=== PATIENT | male | born 1985 | race African-American/Black ===

== ENCOUNTER 2018-05-15 18:42 | Emergency (ER) | payer OTHER ==
[2018-05-15 18:46] VITALS: BP 119/72; PULSE 97; RESP 16
[2018-05-15] MEDS ORDERED: IBUPROFEN 600 MG TAB PO STA (18:56)
[2018-05-15] MEDS ORDERED: ACETAMINOPHEN TAB 325 MG TAB PO STA (18:56)
--- NOTE | 2018-05-15 18:59 | ED ---
General Adult HPI - General Chief complaint: Fever Stated complaint: Poss Pnuemonia Time Seen by Provider: 05/15/18 18:47 Source: patient, RN notes reviewed, old records reviewed Mode of arrival: ambulatory Limitations: no limitations - History of Present Illness Initial comments: 32-year-old male patient with past medical history of hypertension presents to ED with 1 day of waxing and waning fevers, nonproductive cough, myalgias. Patient does admit to regular tobacco use. Patient denies any other complaints. Patient denies chest pain, shortness of breath, abdominal pain, vomiting or diarrhea. Systemic: Pt denies fatigue, rash. Pt denies weakness, night sweats, weight loss. Neuro: Pt denies headache, visual disturbances, syncope or pre-syncope. HEENT: Pt denies ocular discharge or irritation, otalgia, rhinorrhea, pharyngitis or notable lymphadenopathy. Cardiopulmonary: Pt denies chest pain, SOB, heart palpitations, dyspnea on exertion. Abdominal/GI: Pt denies abdominal pain, n/v/d. : Pt denies dysuria, burning w/ urination, frequency/urgency. Denies new onset urinary or bowel incontinence. MSK: Pt denies loss of strength or function in extremities. Neuro: Pt denies new onset weakness, paresthesias. - Related Data Previous Rx's Medication Instructions Recorded Oseltamivir [Tamiflu] 75 mg PO Q12HR 5 Days cap 05/15/18 Allergies Allergy/AdvReac Type Severity Reaction Status Date / Time No Known Allergies Allergy Verified 05/15/18 19:05 Review of Systems ROS Statement: Those systems with pertinent positive or pertinent negative responses have been documented in the HPI. ROS Other: All systems not noted in ROS Statement are negative. Past Medical History Past Medical History: Hypertension History of Any Multi-Drug Resistant Organisms: None Reported Past Surgical History: Appendectomy Past Psychological History: No Psychological Hx Reported Smoking Status: Current every day smoker Past Alcohol Use History: Occasional Past Drug Use History: None Reported General Exam - General Exam Comments Initial Comments: Constitutional: NAD, AOX3, Pt has pleasant affect. HEENT: NC/AT, trachea midline, neck supple, no lymphadenopathy. Posterior pharynx non erythematous, without exudates. External ears appear normal, without discharge. Mucous membranes moist. Eyes PERRLA, EOM intact. There is no scleral icterus. No pallor noted. Cardiopulmonary: RRR, no murmurs, rubs or gallops, no JVD noted. Lungs CTAB in anterior and posterior hammond. No peripheral edema. Abdominal exam: Abdomen soft and non-distended. Abdomen non-tender to palpation in all 4 quadrants. Bowel sounds active in LLQ. No hepatosplenomegaly. No ecchymosis Neuro: CN II-XII grossly intact. No nuchal rigidity. MSK: No posterior calf tenderness bilaterally, homans sign negative bilaterally. Posterior tibialis and radial pulse +2 bilaterally. Sensation intact in upper and lower extremities. Full active ROM in upper and lower extremities, 5/5 stregnth. Limitations: no limitations Course Vital Signs 05/15/18 05/15/18 18:44 21:09 Temperature 100.7 F H 99.4 F Pulse Rate 97 Respiratory 16 Rate Blood Pressure 119/72 O2 Sat by Pulse 97 Oximetry Medical Decision Making - Medical Decision Making 32-year-old male patient with past medical history of hypertension presents to ED with 1 day of waxing and waning fevers, nonproductive cough, myalgias. Patient does admit to regular tobacco use. Patient denies any other complaints. Patient denies chest pain, shortness of breath, abdominal pain, vomiting or diarrhea. Patient also has stable, mildly febrile. Patient administered antipyretic. Physical exam did not display acute pathology. Laboratory Investigations reveal negative influenza. Chest x-ray displayed no acute process. She decision making, due to patient's history, and presentation patient to be treated empirically for influenza. Patient to discharge, supportive therapy. Patient follow with PCP in 1-2 days. Patient return to ER if new symptoms develop or condition worsens in anyway. Case discussed in depth with Dr. Palomares. - Lab Data Lab Results 05/15/18 Range/Units 19:30 Influenza Type A RNA Not Detected (Not Detectd) Influenza Type B (PCR) Not Detected (Not Detectd) Disposition Clinical Impression: Viral syndrome Disposition: HOME SELF-CARE Condition: Stable Instructions (If sedation given, give patient instructions): Fever in Adults (ED), Viral Syndrome (ED) Additional Instructions: Patient to adhere to previously discussed treatment plan and will take medication(s) as directed. Patient to follow up with PCP in 1-2 days. Patient to return to ED if symptoms do not improve. Follow-up with primary care provider in 1-2 days. Return to ER condition worsens in any way. Use Tylenol and Motrin as needed for fever. Prescriptions: Oseltamivir [Tamiflu] 75 mg PO Q12HR 5 Days cap Is patient prescribed a controlled substance at d/c from ED?: No Referrals: None,Stated [Primary Care Provider] - 1-2 days [facility] - [facility]-2 days
--- NOTE | 2018-05-15 19:35 | XR ---
EXAMINATION: XR chest 2V DATE AND TIME: 05/15/2018 7:21 PM CLINICAL INDICATION: PHH; Pain fever and cough TECHNIQUE: Departmental protocol COMPARISON: 11/19/2009 FINDINGS: The overlying soft tissues are prominent. Lungs are clear. The pleural spaces are negative. The cardiac silhouette is not enlarged. The remainder of the mediastinal silhouette is unremarkable. The skeletal structures and soft tissues are negative for acute findings. IMPRESSION: NO ACUTE PROCESS.
[2018-05-15] MEDS ORDERED: OSELTAMIVIR 75 MG CAP PO STA (20:17)
[2018-05-15] MEDS ORDERED: ACETAMINOPHEN ORAL SUSP 160 MG/5 ML CUP PO ONE (20:17)
[2018-05-15 21:10] VITALS: TEMP 99.4
== END 2018-05-15 21:55 | disposition home or self-care (01) ==
LOC: EC 18:42
DX: B34.9 Viral infection, unspecified (principal); F17.200 Nicotine dependence, unspecified, uncomplicated
CPT/HCPCS: 71046; 87502; 99284

== ENCOUNTER 2019-03-06 22:20 | Emergency (ER) | payer OTHER ==
[2019-03-06] MEDS ORDERED: IBUPROFEN 600 MG TAB PO STA (22:39)
[2019-03-06] MEDS ORDERED: ACETAMINOPHEN TAB 500 MG TAB PO STA (22:39)
--- NOTE | 2019-03-06 23:06 | XR ---
EXAMINATION TYPE: XR chest 2V DATE OF EXAM: 03/06/2019 COMPARISON: 05/15/2018 HISTORY: Cough and fever TECHNIQUE: FINDINGS: Heart and mediastinum are normal. Lungs are clear. Diaphragm is normal. Bony thorax appears normal. IMPRESSION: Normal chest. No adverse change.
[2019-03-07 00:02] VITALS: PULSE 80; RESP 18; TEMP 99
[2019-03-07 00:03] VITALS: BP 141/90
--- NOTE | 2019-03-07 00:15 | ED ---
General Adult HPI - General Chief complaint: Upper Respiratory Infection Stated complaint: Cough Time Seen by Provider: 03/06/19 22:36 Source: patient, RN notes reviewed, old records reviewed Mode of arrival: ambulatory Limitations: no limitations - History of Present Illness Initial comments: 34-year-old male patient no pertinent past history presents to ED for chief complaint of cough, fever. Patient forced this began approximately 4 AM this morning. Patient does report that he had exposure to influenza last week. Denies any nausea vomiting. Denies any localized pain. Reports that when coughing he has some mild discomfort, denies any pain at rest. Denies any difficulty breathing. Denies other complaints. Systemic: Pt denies fatigue, fever/chills, rash. Pt denies weakness, night sweats, weight loss. Neuro: Pt denies headache, visual disturbances, syncope or pre-syncope. HEENT: Pt denies ocular discharge or irritation, otalgia, rhinorrhea, pharyngitis or notable lymphadenopathy. Cardiopulmonary: Pt denies chest pain, SOB, heart palpitations, dyspnea on exertion. Abdominal/GI: Pt denies abdominal pain, n/v/d. : Pt denies dysuria, burning w/ urination, frequency/urgency. Denies new onset urinary or bowel incontinence. MSK: Pt denies myalgia, loss of strength or function in extremities. Neuro: Pt denies new onset weakness, paresthesias. - Related Data Previous Rx's Medication Instructions Recorded Oseltamivir [Tamiflu] 75 mg PO Q12HR 5 Days cap 05/15/18 Allergies Allergy/AdvReac Type Severity Reaction Status Date / Time No Known Allergies Allergy Verified 03/06/19 22:24 Review of Systems ROS Statement: Those systems with pertinent positive or pertinent negative responses have been documented in the HPI. ROS Other: All systems not noted in ROS Statement are negative. Past Medical History Past Medical History: Hypertension History of Any Multi-Drug Resistant Organisms: None Reported Past Surgical History: Appendectomy Past Psychological History: No Psychological Hx Reported Smoking Status: Current every day smoker Past Alcohol Use History: Occasional Past Drug Use History: None Reported General Exam - General Exam Comments Initial Comments: Constitutional: NAD, AOX3, Pt has pleasant affect. HEENT: NC/AT, trachea midline, neck supple, no lymphadenopathy. Posterior pha rynx non erythematous, without exudates. External ears appear normal, without discharge. Mucous membranes moist. Eyes PERRLA, EOM intact. There is no scleral icterus. No pallor noted. Cardiopulmonary: RRR, no murmurs, rubs or gallops, no JVD noted. Lungs CTAB in anterior and posterior hammond. No peripheral edema. Abdominal exam: Abdomen soft and non-distended. Abdomen non-tender to palpation in all 4 quadrants. Bowel sounds active in LLQ. No hepatosplenomegaly. No ecchymosis Neuro: CN II-XII grossly intact. No nuchal rigidity. No raccon eyes, no whelan sign, no hemotympanum. No cervical spinal tenderness. MSK: No posterior calf tenderness bilaterally, homans sign negative bilaterally. Posterior tibialis and radial pulse +2 bilaterally. Sensation intact in upper and lower extremities. Full active ROM in upper and lower extremities, 5/5 stregnth. Limitations: no limitations Course Vital Signs 03/06/19 03/07/19 22:22 00:02 Temperature 101.8 F H 99 F Pulse Rate 90 80 Respiratory 16 18 Rate Blood Pressure 151/92 141/90 O2 Sat by Pulse 99 98 Oximetry Medical Decision Making - Medical Decision Making 34-year-old male patient presents to ED with chief complaint cough, fever. Began this morning approximate 4 AM. Patient vital signs the displayed fever, patient was administered antipyretic. Physical exam did not display acute pathology. Laboratory investigations revealed negative influenza. Chest x-ray also negative. Patient feeling much improved after administration of antipyretic. Likely experiencing viral syndrome. Patient discharged to follow up with primary care provider tomorrow, will return to ER if condition worsens. Case discussed with Dr. Dey. - Lab Data Lab Results 03/06/19 Range/Units 22:51 Influenza Type A RNA Not Detected (Not Detectd) Influenza Type B (PCR) Not Detected (Not Detectd) Disposition Clinical Impression: Cough, Fever Disposition: HOME SELF-CARE Condition: Stable Instructions (If sedation given, give patient instructions): Upper Respiratory Infection (ED), Acute Cough (ED) Additional Instructions: Follow-up with primary care provider tomorrow. Take Tylenol Motrin as needed for fever. Return to ER if condition worsens. Is patient prescribed a controlled substance at d/c from ED?: No Referrals: None,Stated [Primary Care Provider] - 1-2 days
== END 2019-03-07 00:24 | disposition home or self-care (01) ==
LOC: EC 22:20
DX: R05 Cough (principal); R50.9 Fever, unspecified; I10 Essential (primary) hypertension; F17.200 Nicotine dependence, unspecified, uncomplicated
CPT/HCPCS: 71046; 87502; 99284

== ENCOUNTER 2021-11-26 04:54 | Emergency (ER) | payer OTHER ==
[2021-11-26 05:02] VITALS: BP 164/106; PULSE 84; RESP 17; TEMP 98.4
--- NOTE | 2021-11-26 06:31 | ED ---
Extremity Problem HPI - General Chief complaint: Extremity Problem,Nontraumatic Stated complaint: Right Foot Swelling and Pain. Possible GOUT. Time Seen by Provider: 11/26/21 06:03 Source: patient, RN notes reviewed Mode of arrival: ambulatory Limitations: no limitations - History of Present Illness Initial comments: 36-year-old male presented from chief complaint right foot. Patient states that this started last 2 days. States this is atraumatic. Patient states that he has a history of gout, feels very similar. He states it's painful eyes first MTP region. Patient denies any fevers or chills patient denies any paresthesias patient offers no other associated complaints. - Related Data Previous Rx's Medication Instructions Recorded Oseltamivir [Tamiflu] 75 mg PO Q12HR 5 Days cap 05/15/18 Indomethacin [Indocin] 50 mg PO TID #30 capsule 11/26/21 Allergies Allergy/AdvReac Type Severity Reaction Status Date / Time No Known Allergies Allergy Verified 11/26/21 04:59 Review of Systems ROS Statement: Those systems with pertinent positive or pertinent negative responses have been documented in the HPI. ROS Other: All systems not noted in ROS Statement are negative. Past Medical History Past Medical History: Hypertension History of Any Multi-Drug Resistant Organisms: None Reported Past Surgical History: Appendectomy Past Psychological History: No Psychological Hx Reported Smoking Status: Current every day smoker Past Alcohol Use History: Occasional Past Drug Use History: None Reported General Exam Limitations: no limitations General appearance: alert, in no apparent distress Head exam: Present: atraumatic, normocephalic, normal inspection Neck exam: Present: normal inspection. Absent: tenderness, meningismus, lymphadenopathy Respiratory exam: Present: normal lung sounds bilaterally. Absent: respiratory distress, wheezes, rales, rhonchi, stridor Cardiovascular Exam: Present: regular rate, normal rhythm, normal heart sounds. Absent: systolic murmur, diastolic murmur, rubs, gallop, clicks Extremities exam: Present: other (Right foot first MTP swollen, warm to touch, severe tender with light touch, no open wounds or sores Tender Ankle Nontender) Course Vital Signs 11/26/21 04:59 Temperature 98.4 F Pulse Rate 84 Respiratory 17 Rate Blood Pressure 164/106 O2 Sat by Pulse 97 Oximetry Medical Decision Making - Medical Decision Making 36-year-old presented for atraumatic right foot pain history of gout feels very similar clinically present will be started on indomethacin advise follow-up PCP increase fluid intake return parameters were discussed. Disposition Clinical Impression: Gout of right foot Disposition: HOME SELF-CARE Condition: Stable Instructions (If sedation given, give patient instructions): Low Purine Diet (ED), Gout (ED) Additional Instructions: Please return to the Emergency Department if symptoms worsen or any other concerns. Prescriptions: Indomethacin [Indocin] 50 mg PO TID #30 capsule Is patient prescribed a controlled substance at d/c from ED?: No Referrals: Nonstaff,Physician [Primary Care Provider] - 1-2 days Time of Disposition: 06:31
[2021-11-26] MEDS ORDERED: ACET/COD 300 MG/30 MG STARTER PACK 6 TAB BTL PO STA (06:42)
== END 2021-11-26 07:11 | disposition home or self-care (01) ==
LOC: EC 04:54
DX: M10.9 Gout, unspecified (principal); F17.210 Nicotine dependence, cigarettes, uncomplicated; I10 Essential (primary) hypertension; Z90.49 Acquired absence of other specified parts of digestive tract; Z79.899 Other long term (current) drug therapy
CPT/HCPCS: 99283

== ENCOUNTER 2022-09-23 15:36 | Emergency (ER) | payer OTHER ==
[2022-09-23 16:34] VITALS: PULSE 78; RESP 18
--- NOTE | 2022-09-23 16:34 | ED ---
Extremity Problem HPI <Marisol Menchaca - Last Filed: 09/23/22 16:31> <Leslie Jordan - Last Filed: 09/23/22 19:59> - General Stated complaint: Swollen Right Leg Time Seen by Provider: 09/23/22 16:31 - History of Present Illness Initial comments: Patient is a 37-year-old male who presents to the emergency department for right calf pain and swelling which started this morning. Denies injury. Patient denies history of DVT and PE. [place] (Marisol Menchaca) - Related Data Previous Rx's Medication Instructions Recorded Oseltamivir [Tamiflu] 75 mg PO Q12HR 5 Days cap 05/15/18 Indomethacin [Indocin] 50 mg PO TID #30 capsule 11/26/21 HYDROcodone/APAP 10-325MG [Weston 1 tab PO Q4HR PRN 3 Days #18 tab 09/23/22 10-325] lisinopriL [Zestril] 5 mg PO DAILY #30 tab 09/23/22 predniSONE [Deltasone] 20 mg PO BID #10 tab 09/23/22 Allergies Allergy/AdvReac Type Severity Reaction Status Date / Time No Known Allergies Allergy Verified 09/23/22 16:34 Review of Systems ROS Other: All systems not noted in ROS Statement are negative. <Marisol Menchaca - Last Filed: 09/23/22 16:31> ROS Other: All systems not noted in ROS Statement are negative. <Leslie Jordan - Last Filed: 09/23/22 19:59> ROS Statement: Those systems with pertinent positive or pertinent negative responses have been documented in the HPI. Past Medical History Past Medical History: Hypertension History of Any Multi-Drug Resistant Organisms: None Reported Past Surgical History: Appendectomy Past Psychological History: No Psychological Hx Reported Smoking Status: Current every day smoker Past Alcohol Use History: Occasional Past Drug Use History: None Reported <Marisol Menchaca - Last Filed: 09/23/22 16:31> General Exam <Marisol Menchaca - Last Filed: 09/23/22 16:31> - General Exam Comments Initial Comments: Visual Physical Exam Vital signs reviewed General: Well-appearing, nontoxic, no acute distress. Head: Normocephalic, atraumatic Eyes: PERRLA, EOMI ENT: Airway patent Chest: Nonlabored breathing Skin: No visual rash, normal skin tone Neuro: Alert and oriented 3 Musculoskeletal: No gross abnormalities (Marisol Menchaca) Course Vital Signs 09/23/22 16:29 Temperature 98.0 F Pulse Rate 78 Respiratory 18 Rate Blood Pressure 158/90 O2 Sat by Pulse 97 Oximetry Medical Decision Making <Marisol Menchaca - Last Filed: 09/23/22 16:31> - Medical Decision Making I performed the QuickNote portion of this chart - Marisol Menchaca PA-C (Marisol Menchaca) Disposition <Marisol Menchaca - Last Filed: 09/23/22 16:31> Is patient prescribed a controlled substance at d/c from ED?: No Time of Disposition: 19:52 <Leslie Jordan - Last Filed: 09/23/22 19:59> Clinical Impression: Right knee pain, Acute bursitis Disposition: HOME SELF-CARE Condition: Stable Instructions (If sedation given, give patient instructions): Knee Bursitis (ED) Additional Instructions: Rest, ice and elevate your right knee. Take the pain medications and steroids as directed. Follow-up with the orthopedic office. Return for any new or worsening symptoms Prescriptions: predniSONE [Deltasone] 20 mg PO BID #10 tab HYDROcodone/APAP 10-325MG [Weston 10-325] 1 tab PO Q4HR PRN 3 Days #18 tab PRN Reason: Pain lisinopriL [Zestril] 5 mg PO DAILY #30 tab Referrals: None,Stated [Primary Care Provider] - 1-2 days Joaquin Brand DO [REFERRING] - 1-2 days Glynn Bonds MD [REFERRING] - 1-2 days
--- NOTE | 2022-09-23 17:35 | US ---
EXAMINATION TYPE: US venous doppler duplex LE RT DATE OF EXAM: 09/23/2022 5:01 PM COMPARISON: NONE CLINICAL INDICATION: Male, 37 years old with history of pain swelling; Right knee pain and edema SIDE PERFORMED: right TECHNIQUE: The lower extremity deep venous system is examined utilizing real time linear array sonog daniel with graded compression, doppler sonography and color-flow sonography. VESSELS IMAGED: Common Femoral Vein Deep Femoral Vein Greater Saphenous Vein * Femoral Vein Popliteal Vein Small Saphenous Vein * Proximal Calf Veins (* superficial vessels) Right Leg: No evidence of DVT as visualized IMPRESSION: No evidence for DVT within the right lower extremity imaged from the groin to the upper calf.
[2022-09-23] MEDS ORDERED: predniSONE 20 MG TAB PO STA (19:38)
[2022-09-23] MEDS ORDERED: HYDROcodone/APAP 10-325MG 1 EACH TAB PO ONE (19:38)
[2022-09-23 20:11] VITALS: BP 146/86; TEMP 97.8
== END 2022-09-23 20:11 | disposition home or self-care (01) ==
LOC: EC 15:36
DX: M70.51 Other bursitis of knee, right knee (principal); I10 Essential (primary) hypertension; F17.200 Nicotine dependence, unspecified, uncomplicated
CPT/HCPCS: 93971; 99284; J7512